=== PATIENT | male | born 1980 | race Caucasian/White ===

== ENCOUNTER 2020-09-03 23:45 | Emergency (ER) | payer BC, MEDICARE ==
--- NOTE | 2020-09-04 00:44 | EDM.PDOC ---
ED HPI GENERAL MEDICAL PROBLEM - General Chief Complaint: Head Injury Stated Complaint: HEAD INJURY Time Seen by Provider: 09/04/20 00:20 Source of Information: Reports: Patient History Limitations: Reports: No Limitations - History of Present Illness INITIAL COMMENTS - FREE TEXT/NARRATIVE: patient presented to the ER after a fall and head injury. Reports that he tripped while going down the steps outside his house. landed on the ground. He is not sure if he had an LOC, but reports that he saw '' bright light '' when he opened his eyes. His reports that she heard the noise when he fell and ran to check on him - he was talking but decided to bring him to the ER for evaluation. Reports mild headache, but no nausea or double vision. no weakness or numbness. He admits drinking 5-6 beers today, and denies any illicit drugs abuse, including smoking marijuana. Onset: Sudden Duration: Minutes: (40) Location: Reports: Head - Related Data Allergies Allergy/AdvReac Type Severity Reaction Status Date / Time amoxicillin Allergy Cannot Verified 09/04/20 00:20 Remember cat dander Allergy Cannot Verified 09/04/20 00:20 Remember cheese Allergy Cannot Verified 09/04/20 00:20 Remember chocolate flavor Allergy Cannot Verified 09/04/20 00:20 Remember feathers Allergy Cannot Verified 09/04/20 00:20 Remember hydrocodone [From Vicodin] Allergy Cannot Verified 09/04/20 00:20 Remember milk Allergy Cannot Verified 09/04/20 00:20 Remember Penicillins Allergy Cannot Verified 09/04/20 00:20 Remember ED ROS GENERAL - Review of Systems Review Of Systems: See Below Constitutional: Reports: No Symptoms HEENT: Reports: No Symptoms Respiratory: Reports: No Symptoms Cardiovascular: Reports: No Symptoms GI/Abdominal: Reports: No Symptoms : Reports: No Symptoms Musculoskeletal: Reports: No Symptoms Skin: Reports: No Symptoms ED EXAM, HEAD INJURY - Physical Exam Exam: See Below Exam Limited By: No Limitations General Appearance: Alert, WD/WN, No Apparent Distress Head: Atraumatic, Normocephalic Nexus Criteria: Evidence of Intoxication (mild) Eyes: Bilateral Eye: EOMI, PERRL Ears: Normal External Exam Nose: Normal Inspection Neck: Non-Tender, Full Range of Motion, Normal Alignment Respiratory: No Respiratory Distress, Lungs Clear Cardiovascular: Normal Peripheral Pulses GI/Abdominal Exam: Normal Bowel Sounds, Soft, Non-Tender Back Exam: Normal Inspection Extremities: Normal Inspection, Normal Range of Motion Neurologic: No Motor/Sensory Deficits, Alert, Normal Mood/Affect, Oriented x 3 - Steven Coma Score Best Eye Response (Steven): (4) Open Spontaneously Best Verbal Response (Steven): (5) Oriented Best Motor Response (Steven): (6) Obeys Commands Steven Total: 15 Course - Vital Signs Last Recorded V/S: Last Vital Signs Temp 36.7 C 09/04/20 00:15 Pulse 68 09/04/20 00:15 Resp 18 09/04/20 00:15 BP 145/98 H 09/04/20 00:15 Pulse Ox 99 09/04/20 00:15 - Orders/Labs/Meds Orders: Active Orders 24 hr Category Date Time Status Head wo Cont [CT] Stat Exams 09/04/20 00:44 Ordered - Re-Assessments/Exams Free Text/Narrative Re-Assessment/Exam: CT head was obtained - no e/o bleeding or acute intra-cranial pathology Departure - Departure Time of Disposition: :28 Disposition: Home, Self-Care 01 Condition: Good Clinical Impression: Concussion injury of brain - Discharge Information *PRESCRIPTION DRUG MONITORING PROGRAM REVIEWED*: Not Applicable *COPY OF PRESCRIPTION DRUG MONITORING REPORT IN PATIENT ERICKA: Not Applicable Instructions: Head Injury, Adult, [id number], Concussion, Adult, [id number] Forms: ED Department Discharge Sepsis Event Note (ED) - Evaluation Sepsis Screening Result: No Definite Risk - Focused Exam Vital Signs: Vital Signs Temp Pulse Resp BP Pulse Ox 09/04/20 00:15 36.7 C 68 18 145/98 H 99 - Problem List & Annotations (1) Concussion injury of brain SNOMED Code(s): 943558115 Code(s): S06.0X9A - CONCUSSION W LOSS OF CONSCIOUSNESS OF UNSP DURATION, INIT Status: Acute Priority: Low - Problem List Review Problem List Initiated/Reviewed/Updated: Yes - My Orders Last 24 Hours: My Active Orders 09/04/20 00:44 Head wo Cont [CT] Stat - Assessment/Plan Last 24 Hours: My Active Orders 09/04/20 00:44 Head wo Cont [CT] Stat Plan: - increase fluids intake - take tylenol for headache - call ER to speak withe nurse if any concerns - please refer the printed educational material
--- NOTE | 2020-09-04 11:17 | CT ---
Date of Service: 09/04/20 Clinical Data: fall - concussion - ETOH intoxication UNENHANCED BRAIN CT: Multislice acquisition through the brain without IV contrast was performed. No priors. No masses or mass effect. No intracranial hemorrhage. No evidence of acute or subacute infarct. No osseous abnormalities. There is a rounded low-density lesion in the left sphenoid sinus consistent with a retention cyst or polyp. IMPRESSION: No acute intracranial abnormalities. [id number] MTDD
== END 2020-09-04 01:35 | disposition home or self-care (01) ==
LOC: LB.ED 23:45
DX: S06.0X9A Concussion with loss of consciousness of unspecified duration, initial encounter (principal); Z88.0 Allergy status to penicillin; Z91.048 Other nonmedicinal substance allergy status; Z91.018 Allergy to other foods; Z88.5 Allergy status to narcotic agent; Z91.011 Allergy to milk products; W10.9XXA Fall (on) (from) unspecified stairs and steps, initial encounter; Y92.009 Unspecified place in unspecified non-institutional (private) residence as the place of occurrence of the external cause
CPT/HCPCS: 70450; 99283; 99283-25